=== PATIENT | male | born 1945 | race Caucasian/White ===

== ENCOUNTER 2019-04-08 16:42 | Emergency (ER) | payer MEDICARE, OTHER ==
[2019-04-08] MEDS ORDERED: Sodium Chloride 0.9% 1,000 ML IV ONE ×2 (16:43→17:59)
--- NOTE | 2019-04-08 16:47 | EDM.PDOC ---
ED HPI GENERAL MEDICAL PROBLEM - General Stated Complaint: DOUBLE VISION, DIZZINESS Time Seen by Provider: 04/08/19 16:42 Source of Information: Reports: Patient, Family History Limitations: Reports: Physical Impairment - History of Present Illness INITIAL COMMENTS - FREE TEXT/NARRATIVE: 73 y.o.w.m with and Aortic aneurysm and left sided Eye cataract came with his son to the ED due to sudden onset of double vision at about 3 pm today. No H/A. Pt has an unsteady gate because he can not see well. No C/P no Dizziness no light headedness. no SOB. Pt is a poor historian. No other acute med issues. BP 98/65 RR 18 Pule ox 98% on RA Temp 36.4 Pulse 84 Onset Date: 04/08/19 Onset Time: 13:00 Duration: Hour(s): Location: Reports: Head Severity: Moderate Improves with: Reports: None Worsens with: Reports: None Context: Reports: Other Associated Symptoms: Reports: No Other Symptoms - Related Data Allergies Allergy/AdvReac Type Severity Reaction Status Date / Time infliximab [From Remicade] Allergy Hives Verified 05/22/16 07:31 mercury (elemental) Allergy Hives Verified 05/22/16 07:31 Home Meds: Home Meds Acetaminophen [Pain Reliever] 500 mg PO BID 05/21/16 [History] Aspirin [Halfprin] 81 mg PO DAILY 05/21/16 [History] B-Carotene/C/E/Lut/Mn Cmb 29 [Macuvite with Lutein] 1 each PO DAILY 05/21/16 [ History] Famotidine [Pepcid] 40 mg PO DAILY 05/21/16 [History] Folic Acid 1 mg PO DAILY 05/21/16 [History] Furosemide [Lasix] 20 mg PO DAILY 05/21/16 [History] Gluc 2KCl/Chondr/Dudley Hy/Hy Ac [Glucosamine & Chondroitin Cap] 1 each PO BID 03/29 [History] Ibuprofen [Advil] 100 mg PO BID 05/21/16 [History] Levothyroxine 150 mcg PO ACBREAKFAST 05/21/16 [History] Lisinopril 10 mg PO DAILY 05/21/16 [History] Multivitamin with Minerals [Multiple Vitamin] 1 tab PO DAILY 05/21/16 [History] predniSONE [Prednisone] 5 mg PO DAILY 05/21/16 [History] riTUXimab [Rituxan] 1,000 mg IV ASDIRECTED 05/21/16 [History] Past Medical History HEENT History: Reports: Hard of Hearing, Impaired Vision, Sinusitis Cardiovascular History: Reports: Aneurysm, Hypertension Respiratory History: Reports: Other (See Below) Other Respiratory History: PT IS A SMOKER AND HAS A LUNG NODULE Gastrointestinal History: Reports: Hemorrhoids Musculoskeletal History: Reports: Arthritis, Gout, RA Endocrine/Metabolic History: Reports: Hypothyroidism, Obesity/BMI 30+ - Infectious Disease History Infectious Disease History: Reports: Measles, Mumps - Past Surgical History GI Surgical History: Reports: Hernia, Abdominal, Hernia, Inguinal, Hernia Repair /Other, Other (See Below) ED ROS GENERAL - Review of Systems Review Of Systems: See Below Constitutional: Reports: Weakness HEENT: Reports: Vision Change Respiratory: Reports: No Symptoms Cardiovascular: Reports: No Symptoms Endocrine: Reports: No Symptoms GI/Abdominal: Reports: No Symptoms : Reports: No Symptoms Musculoskeletal: Reports: No Symptoms Skin: Reports: No Symptoms Neurological: Reports: No Symptoms Psychiatric: Reports: No Symptoms Hematologic/Lymphatic: Reports: No Symptoms Immunologic: Reports: No Symptoms ED EXAM GENERAL W FULL EYE - Physical Exam Exam: See Below Exam Limited By: Physical Impairment General Appearance: Alert, WD/WN, Moderate Distress Eye Exam: Bilateral Eye: Vision Changes (double vision since 3 pm) Visual Acuity (R) 20/: 100 Visual Acuity (L) 20/: 50 Cornea Exam: Left: Cloudy Cornea Extraocular Movements: Bilateral: Intact Pupils: Normal Accommodation Ears: Normal External Exam Nose: Normal Inspection, Normal Mucosa Throat/Mouth: Normal Inspection Head: Atraumatic, Normocephalic Neck: Normal Inspection, Supple, Non-Tender Respiratory/Chest: No Respiratory Distress, Lungs Clear, Normal Breath Sounds Cardiovascular: Normal Peripheral Pulses, Regular Rate, Rhythm, No Edema, No Gallop GI/Abdominal: Normal Bowel Sounds, Soft, Non-Tender (Male) Exam: Deferred (Female) Exam: Deferred Rectal (Males) Exam: Deferred Rectal (Female) Exam: Deferred Back Exam: Normal Inspection, Full Range of Motion Extremities: Normal Inspection, Normal Range of Motion Neurological: Alert, Oriented, Normal Cognition, Abnormal Gait Psychiatric: Normal Affect, Normal Mood Skin Exam: Warm, Dry, Intact, Normal Color, No Rash Lymphatic: No Adenopathy EKG INTERPRETATION EKG Date: 04/08/19 Time: 17:30 Rhythm: NSR Rate (Beats/Min): 75 [place]: Normal P-Wave: Present QRS: Normal ST-T: Normal QT: Normal Comparison: NA - No Prior EKG Course - Vital Signs Text/Narrative:: 73 y.o.w.m with and Aortic aneurysm and left sided Eye cataract came with his son to the ED due to sudden onset of double vision at about 3 pm today. No H/A. Pt has an unsteady gate because he can not see well. No C/P no Dizziness no light headedness. no SOB. Pt is a poor historian. No other acute med issues. BP 98/65 RR 18 Pule ox 98% on RA Temp 36.4 Pulse 84 PE: WNWN W M with double vision Imaging: CT head: NAD Labs: CBC HGB 12.5 BMP Cr 1.4 BUN 21 GFR 46 Lactic acid 1.8 Impression: Double vision, Dehydration, unsteady gate. Tx; NS 6.14 pm Consultation [facility]: [facility] transfer to [facility] or [place] for W/U and MRI 8.34 Consultation: Dr. Perdomo/Peng EDMD [facility]: Accepte the pt for transfer and further care Reexam: Improved BP was 88/56, pt responded well to NS. Ate in the ED Plan: Transfer to [facility] - Orders/Labs/Meds Orders: Active Orders 24 hr Category Date Time Status EKG Documentation Completion [RC] ASDIRECTED Care 04/08/19 17:24 Active EKG Documentation Completion [RC] ASDIRECTED Care 04/08/19 19:53 Active Chest 1V Frontal [CR] Stat Exams 04/08/19 19:52 Taken Head wo Cont [CT] Stat Exams 04/08/19 16:45 Taken Sodium Chloride 0.9% [Normal Saline] 1,000 ml Med 04/08/19 20:00 Active IV ASDIRECTED EKG 12 Lead [EK] Routine Ther 04/08/19 17:24 Ordered EKG 12 Lead [EK] Routine Ther 04/08/19 19:52 Ordered Medication Orders Sodium Chloride (Normal Saline) 1,000 mls @ 125 mls/hr IV ASDIRECTED [facility] Labs: Laboratory Tests 04/08/19 04/08/19 04/08/19 Range/Units 16:45 16:54 16:54 WBC 11.2 (4.5-12.0) X10-3/uL RBC 4.37 (4.30-5.75) x10(6)uL Hgb 12.5 L (13.5-17.8) g/dL Hct 38.4 (30.0-51.3) % MCV 87.8 (80-96) fL MCH 28.6 (27.7-33.6) pg MCHC 32.5 (32.2-35.4) g/dL RDW 15.2 (11.5-15.5) % Plt Count 381 H (125-369) X10(3)uL MPV 8.2 (7.4-10.4) fL Neut % (Auto) 81.8 (46-82) % Lymph % (Auto) 9.7 L (13-37) % Ida % (Auto) 7.6 (4-12) % Eos % (Auto) 0 L (1.0-5.0) % Baso % (Auto) 1 (0-2) % Neut # (Auto) 9.1 H (1.6-8.3) # Lymph # (Auto) 1.1 (0.6-5.0) # Ida # (Auto) 0.9 (0.0-1.3) # Eos # (Auto) 0.0 (0.0-0.8) # Baso # (Auto) 0.1 (0.0-0.2) # PT 9.4 (8.7-11.1) INR 0.97 (0.89-1.13) Sodium (135-145) mmol/L Potassium (3.5-5.3) mmol/L Chloride (100-110) mmol/L Carbon Dioxide (21-32) mmol/L BUN (7-18) mg/dL Creatinine (0.70-1.30) mg/dL Est Cr Clr Drug Dosing Estimated GFR (MDRD) (>60) BUN/Creatinine Ratio (9-20) Glucose (80-116) mg/dL Lactic Acid (0.4-2.2) mmol/L Calcium (8.6-10.2) mg/dL Troponin I < 0.017 L (<0.017-0.056) ng/mL NT-Pro-B Natriuret Pep 132 (<=450) pg/mL Urine Color (YELLOW) Urine Appearance (CLEAR) Urine pH (5.0-6.5) Ur Specific Fisher (1.010-1.025) Urine Protein (NEGATIVE) mg/dL Urine Glucose (UA) (NORMAL) mg/dL Urine Ketones (NEGATIVE) mg/dL Urine Occult Blood (NEGATIVE) Urine Nitrite (NEGATIVE) Urine Bilirubin (NEGATIVE) Urine Urobilinogen (NEGATIVE) mg/dL Ur Leukocyte Esterase (NEGATIVE) Urine RBC (0-5) Urine WBC (0-5) Ur Squamous Epith Cells (NS,R,O) Urine Bacteria (NS) 04/08/19 04/08/19 04/08/19 Range/Units 16:54 18:32 20:05 WBC (4.5-12.0) X10-3/uL RBC (4.30-5.75) x10(6)uL Hgb (13.5-17.8) g/dL Hct (30.0-51.3) % MCV (80-96) fL MCH (27.7-33.6) pg MCHC (32.2-35.4) g/dL RDW (11.5-15.5) % Plt Count (125-369) X10(3)uL MPV (7.4-10.4) fL Neut % (Auto) (46-82) % Lymph % (Auto) (13-37) % Ida % (Auto) (4-12) % Eos % (Auto) (1.0-5.0) % Baso % (Auto) (0-2) % Neut # (Auto) (1.6-8.3) # Lymph # (Auto) (0.6-5.0) # Ida # (Auto) (0.0-1.3) # Eos # (Auto) (0.0-0.8) # Baso # (Auto) (0.0-0.2) # PT (8.7-11.1) INR (0.89-1.13) Sodium 138 (135-145) mmol/L Potassium 4.0 (3.5-5.3) mmol/L Chloride 103 (100-110) mmol/L Carbon Dioxide 25 (21-32) mmol/L BUN 21 H (7-18) mg/dL Creatinine 1.5 H (0.70-1.30) mg/dL Est Cr Clr Drug Dosing TNP Estimated GFR (MDRD) 46 L (>60) BUN/Creatinine Ratio 14.0 (9-20) Glucose 112 (80-116) mg/dL Lactic Acid 1.8 (0.4-2.2) mmol/L Calcium 8.7 (8.6-10.2) mg/dL Troponin I (<0.017-0.056) ng/mL NT-Pro-B Natriuret Pep (<=450) pg/mL Urine Color Yellow (YELLOW) Urine Appearance Clear (CLEAR) Urine pH 6.0 (5.0-6.5) Ur Specific Fisher 1.005 L (1.010-1.025) Urine Protein Negative (NEGATIVE) mg/dL Urine Glucose (UA) Normal (NORMAL) mg/dL Urine Ketones Negative (NEGATIVE) mg/dL Urine Occult Blood Negative (NEGATIVE) Urine Nitrite Negative (NEGATIVE) Urine Bilirubin Negative (NEGATIVE) Urine Urobilinogen Normal (NEGATIVE) mg/dL Ur Leukocyte Esterase Negative (NEGATIVE) Urine RBC Not seen (0-5) Urine WBC 0-5 (0-5) Ur Squamous Epith Cells Rare (NS,R,O) Urine Bacteria Rare H (NS) Meds: Medications Generic Name Dose Route Start Last Admin Trade Name Freq PRN Reason Stop Dose Admin Sodium Chloride 1,000 mls @ 125 mls/hr 04/08/19 20:00 Normal Saline IV ASDIRECTED HUGO Discontinued Medications Generic Name Dose Route Start Last Admin Trade Name Freq PRN Reason Stop Dose Admin Sodium Chloride 1,000 mls @ 500 mls/hr 04/08/19 17:59 Normal Saline IV 04/08/19 19:58 .BOLUS ONE Departure - Departure Time of Disposition: 19:46 Disposition: DC/Tfer to Acute Hospital 02 Condition: Good Clinical Impression: Double vision, Dehydration - Discharge Information Referrals: PCP,None [Primary Care Provider] - - My Orders Last 24 Hours: My Active Orders 04/08/19 16:45 Head wo Cont [CT] Stat 04/08/19 17:24 EKG Documentation Completion [RC] ASDIRECTED EKG 12 Lead [EK] Routine 04/08/19 19:52 Chest 1V Frontal [CR] Stat EKG 12 Lead [EK] Routine 04/08/19 19:53 EKG Documentation Completion [RC] ASDIRECTED 04/08/19 20:00 Sodium Chloride 0.9% [Normal Saline] 1,000 ml IV ASDIRECTED - Assessment/Plan Last 24 Hours: My Active Orders 04/08/19 16:45 Head wo Cont [CT] Stat 04/08/19 17:24 EKG Documentation Completion [RC] ASDIRECTED EKG 12 Lead [EK] Routine 04/08/19 19:52 Chest 1V Frontal [CR] Stat EKG 12 Lead [EK] Routine 04/08/19 19:53 EKG Documentation Completion [RC] ASDIRECTED 04/08/19 20:00 Sodium Chloride 0.9% [Normal Saline] 1,000 ml IV ASDIRECTED
[2019-04-08] MEDS ORDERED: Sodium Chloride 0.9% 1,000 ML IV SCH (20:00)
[2019-04-08 20:52] VITALS: BP 98/65; PULSE 90
== END 2019-04-08 21:54 ==
LOC: FB.ED 16:42
DX: E86.0 Dehydration (principal); H53.2 Diplopia; R26.81 Unsteadiness on feet; I10 Essential (primary) hypertension; E03.9 Hypothyroidism, unspecified; Z88.8 Allergy status to other drugs, medicaments and biological substances; Z79.82 Long term (current) use of aspirin; Z79.899 Other long term (current) drug therapy
CPT/HCPCS: 36415; 70450; 71045; 80048; 81001; 83605; 83880; 84484; 85025; 85610; 93005; 96360; 96361; 99285; J7030; 99284; J7040